=== PATIENT | female | born 1970 | race Caucasian/White ===

== ENCOUNTER 2019-03-02 21:53 | Emergency (ER) | payer SELFPAY ==
[2019-03-02 22:53] LABS: URINE PH (Dip) POC 6.5 (5.0-8.5)
[2019-03-02 22:53] LABS: URINE BLOOD (Dip) POC 1+ (NEGATIVE); URINE GLUCOSE (Dip) POC Negative (NEGATIVE); URINE KETONES (Dip) POC Negative (NEGATIVE); URINE LEUKOCYTE EST (Dip) POC Trace (NEGATIVE); URINE NITRITE (Dip) POC Negative (NEGATIVE); URINE TOTAL PROTEIN POC Negative (NEGATIVE)
[2019-03-02] MEDS: PHENAZOPYRIDINE 100 MG TAB PO (23:14)
[2019-03-04 18:54] LABS: URINE BLOOD (Dip) POC 1+ (NEGATIVE); URINE GLUCOSE (Dip) POC Negative (NEGATIVE); URINE KETONES (Dip) POC Negative (NEGATIVE); URINE LEUKOCYTE EST (Dip) POC Trace (NEGATIVE); URINE NITRITE (Dip) POC Negative (NEGATIVE); URINE TOTAL PROTEIN POC Negative (NEGATIVE)
[2019-03-04 18:54] LABS: URINE PH (Dip) POC 6.5 (5.0-8.5)
== END 2019-03-02 23:35 | disposition home or self-care (01) ==
LOC: FTE 21:53
DX: N39.0 Urinary tract infection, site not specified (principal); L29.9 Pruritus, unspecified; Z87.891 Personal history of nicotine dependence
CPT/HCPCS: 81003; 81025; 99282